=== PATIENT | female | born 1990 | race Caucasian/White ===

== ENCOUNTER 2022-08-25 02:40 | Day surgery (SDC) | payer MEDICAID, SELFPAY ==
[2022-08-25] VITALS (24 sets, daily range): BP systolic 84–116; BP diastolic 57–84; PULSE 91–110; RESP 16–22; TEMP 36.5–36.9; O2SAT 94–100
[2022-08-25] MEDS: 0.9 % SODIUM CHLORIDE 1000 ml 1,000 ML 6000 ML IV ×2 (02:40→03:00)
--- NOTE | 2022-08-25 02:51 | ED.GENADULT ---
HPI - General Adult General Chief complaint: Vaginal Bleeding Stated complaint: Vaginal bleeding,miscarriage Time Seen by Provider: 08/25/22 02:51 History of Present Illness HPI narrative: 31-year-old young woman who believes she started miscarrying about at about 14 weeks 1/2-2 weeks ago. Tonight got up to the bathroom, some clots and blood just poured out. EMS noted 70s systolic. EMS gave TXA. Arrives very anxious. Complaining of low abdominal pain. Denies bleeding problem. Has had miscarriages in the past. G5 P 3 with 1 miscarriage and this is likely another. no noted fever. She is worried though that she might have Trichomonas. Related Data Previous Rx's Medication Instructions Recorded dextroamphetamine-amphetamine 10 10 mg PO DAILY #10 tabs 08/25/22 mg tablet (Adderall) dextroamphetamine-amphetamine 30 30 mg PO DAILY #30 tabs 08/25/22 mg tablet (Adderall) drospirenone 3 mg-ethinyl 1 tab PO DAILY #84 tabs 08/25/22 estradiol 0.03 mg tablet (Ocella) ibuprofen 600 mg tablet 600 mg PO Q6H PRN Pain 14 days #30 08/25/22 tabs polysaccharide iron complex 150 mg 150 mg PO DAILY #90 caps 08/25/22 iron capsule (Ferrex) sertraline 50 mg tablet See Rx Instructions .Route 08/25/22 .COMPLEX 90 days #90 tabs Allergies Allergy/AdvReac Type Severity Reaction Status Date / Time No Known Drug Allergies Allergy Verified 08/25/22 04:22 Review of Systems Status of ROS: Reports: 6 or more systems reviewed and unremarkable except as noted in History and below [facility] Medical History ADD (attention deficit disorder) Anxiety and depression Methamphetamine use Poor historian Exam Narrative: Exam Narrative: Well nourished. Skin is some tattoos and darker complected. Cranial nerves 2-12 intact. Clearly anxious. Mildly tachypneic. Quite alert. Cranial nerves 2-12 intact. Cardiovascular is tachycardic. Oropharynx is little sticky. Lungs appear to be clear There is blood staining of feet, legs and other areas. Quick perineal exam does show active brisk bleeding. Abdomen is soft and quite tender in the suprapubic area. She prefers not even blankets to be resting on her low abdomen Moving all extremities out difficulty. Const: Vital Signs, click to edit/add: Vital Signs - 24 hr 08/25/22 04:01 08/25/22 04:18 08/25/22 02:53 Temperature 97.7 F 97.7 F Pulse Rate 105 H Pulse Rate [Left P ulse Oximeter] 110 H Pulse Rate [Right Pulse Oximeter] Respiratory Rate 20 22 Blood Pressure 100/68 Blood Pressure [Ri ght Arm] Blood Pressure [Ri ght Upper Arm] 89/65 L Pulse Oximetry 100 100 100 Oxygen Delivery Me thod Nasal Cannula Oxygen Flow Rate 2 08/25/22 02:47 08/25/22 02:50 08/25/22 02:56 Temperature 97.7 F 97.7 F Pulse Rate Pulse Rate [Left P ulse Oximeter] 110 H 108 H 104 H Pulse Rate [Right Pulse Oximeter] Respiratory Rate 22 22 22 Blood Pressure Blood Pressure [Ri ght Arm] Blood Pressure [Ri ght Upper Arm] 84/66 L 114/77 107/63 Pulse Oximetry 100 100 100 Oxygen Delivery Me thod Nasal Cannula Nasal Cannula Nasal Cannula Oxygen Flow Rate 2 2 2 08/25/22 03:00 08/25/22 03:10 08/25/22 03:20 Temperature 97.7 F Pulse Rate Pulse Rate [Left P ulse Oximeter] 94 94 97 Pulse Rate [Right Pulse Oximeter] Respiratory Rate 22 22 22 Blood Pressure Blood Pressure [Ri ght Arm] Blood Pressure [Ri ght Upper Arm] 91/64 112/67 104/64 Pulse Oximetry 100 100 100 Oxygen Delivery Me thod Nasal Cannula Nasal Cannula Nasal Cannula Oxygen Flow Rate 2 2 2 08/25/22 03:30 08/25/22 04:10 08/25/22 03:40 Temperature 97.9 F Pulse Rate 96 Pulse Rate [Left P ulse Oximeter] 98 96 Pulse Rate [Right Pulse Oximeter] Respiratory Rate 22 18 18 Blood Pressure 90/58 L Blood Pressure [Ri ght Arm] Blood Pressure [Ri ght Upper Arm] 103/68 110/63 Pulse Oximetry 100 100 100 Oxygen Delivery Me thod Nasal Cannula Nasal Cannula Oxygen Flow Rate 2 2 08/25/22 03:50 08/25/22 05:13 08/25/22 05:13 Temperature 98.2 F 98.2 F Pulse Rate Pulse Rate [Left P ulse Oximeter] 100 Pulse Rate [Right Pulse Oximeter] 99 99 Respiratory Rate 18 16 16 Blood Pressure Blood Pressure [Ri ght Arm] 96/57 L 96/57 L Blood Pressure [Ri ght Upper Arm] 97/84 Pulse Oximetry 100 99 99 Oxygen Delivery Me thod Nasal Cannula Room Air Room Air Oxygen Flow Rate 2 08/25/22 05:27 08/25/22 05:43 08/25/22 05:57 Temperature 97.8 F Pulse Rate Pulse Rate [Left P ulse Oximeter] Pulse Rate [Right Pulse Oximeter] 91 100 104 H Respiratory Rate 16 16 18 Blood Pressure Blood Pressure [Ri ght Arm] 92/65 93/61 100/67 Blood Pressure [Ri ght Upper Arm] Pulse Oximetry 98 100 100 Oxygen Delivery Me thod Room Air Room Air Room Air Oxygen Flow Rate 08/25/22 06:13 08/25/22 06:27 08/25/22 06:54 Temperature 98.3 F 98.4 F Pulse Rate Pulse Rate [Left P ulse Oximeter] Pulse Rate [Right Pulse Oximeter] 108 H 92 91 Respiratory Rate 18 16 18 Blood Pressure Blood Pressure [Ri ght Arm] 92/59 L 112/72 108/73 Blood Pressure [Ri ght Upper Arm] Pulse Oximetry 100 98 100 Oxygen Delivery Me thod Room Air Room Air Room Air Oxygen Flow Rate 08/25/22 07:25 08/25/22 07:41 08/25/22 07:56 Temperature 97.8 F Pulse Rate Pulse Rate [Left P ulse Oximeter] Pulse Rate [Right Pulse Oximeter] 100 100 103 H Respiratory Rate 18 20 18 Blood Pressure Blood Pressure [Ri ght Arm] 89/57 L 95/57 L 102/62 Blood Pressure [Ri ght Upper Arm] Pulse Oximetry 100 94 100 Oxygen Delivery Me thod Room Air Room Air Room Air Oxygen Flow Rate 08/25/22 07:56 08/25/22 07:10 Temperature 97.9 F Pulse Rate 103 H Pulse Rate [Left P ulse Oximeter] Pulse Rate [Right Pulse Oximeter] 97 Respiratory Rate 18 16 Blood Pressure 102/62 Blood Pressure [Ri ght Arm] 116/77 Blood Pressure [Ri ght Upper Arm] Pulse Oximetry 100 100 Oxygen Delivery Me thod Room Air Oxygen Flow Rate Documenting provider has reviewed patient's vital signs: yes Course Vital Signs Vital signs: Initial Vital Signs Temperature 97.7 F 08/25/22 02:47 Temperature Source Temporal Artery Scan 08/25/22 02:47 Pulse Rate 110 H 08/25/22 02:47 Respiratory Rate 22 08/25/22 02:47 Respiratory Effort Spontaneous 08/25/22 02:47 Respiratory Depth Normal 08/25/22 02:47 Respiratory Pattern 08/25/22 02:47 Blood Pressure 84/66 L 08/25/22 02:47 Blood Pressure Mean 72 08/25/22 02:47 Blood Pressure Position Supine 08/25/22 02:47 Pulse Oximetry 100 08/25/22 02:47 Oxygen Delivery Method 08/25/22 02:47 Oxygen Flow Rate 2 08/25/22 02:47 Vital Signs Temperature 97.7 F 08/25/22 02:47 Pulse Rate 110 H 08/25/22 02:47 Respiratory Rate 22 08/25/22 02:47 Blood Pressure 84/66 L 08/25/22 02:47 Pulse Oximetry 100 08/25/22 02:47 Oxygen Delivery Method 08/25/22 02:47 Oxygen Flow Rate 2 08/25/22 02:47 Temperature 97.9 F 08/25/22 07:56 Pulse Rate 103 H 08/25/22 07:56 Respiratory Rate 18 08/25/22 07:56 Blood Pressure 102/62 08/25/22 07:56 Pulse Oximetry 100 08/25/22 07:56 Oxygen Delivery Method 08/25/22 07:56 Oxygen Flow Rate 2 08/25/22 04:18 Medical Decision Making MDM Narrative Medical decision making narrative: After initiating IV fluids, I called to chainsaw mechanic on-call anticipating need for surgical intervention. Initial hemoglobin reported to me at 9.5. Unsure what baseline is. I would presume that this has not yet normalized anticipating this to be closer to 8 already. Continuing with blood preparation for likely transfusion. I would anticipate D&C shortly in the OR. For pain has been receiving dosings of fentanyl. Initially noting that she is fearful of fentanyl. I think though this would provide pain management with less dropping a blood pressures. Dr. Magana arrives to assist and head towards OR. pelvic US--- IMPRESSION: 1. No intrauterine IUP is identified. By the 2012 Society of Radiologists in Ultrasound consensus panel criteria, this is a of unknown location. Followup beta HCG and ultrasound is recommended to distinguish between a normal early IUP, complete , or ectopic . 2. If a spontaneous is clinically confirmed, followup is also recommended to exclude retained products of conception given the thickened, heterogeneous and hypervascular appearance to the endometrium. Lab Data Lab results reviewed: Yes I reviewed the patient's lab results Labs: Lab Results 08/25/22 08/25/22 08/25/22 Range/Units 02:40 02:40 02:40 WBC 13.61 H (4.50-11.00) K/uL RBC 3.17 L (4.00-5.20) m/uL Hgb 9.5 L (12.0-16.0) gm/dL Hct 28.8 L (33.0-51.0) % MCV 91 (80-100) fL MCH 30 (26-34) pg MCHC 33 (32-36) gm/dL RDW Coeff of Gisele 13.8 (11.5-15.5) % Plt Count 230 (140-440) K/uL Neut % (Auto) 79.1 H (42.0-72.0) % Lymph % (Auto) 13.1 L (20-44) % Barron % (Auto) 6.6 (0.0-11.0) % Eos % (Auto) 0.3 (0.0-7.0) % Baso % (Auto) 0.2 (0.0-3.0) % Neut # (Auto) 10.80 H (1.7-7.0) K/uL Lymph # (Auto) 1.80 (0.90-2.90) K/uL Barron # (Auto) 0.90 (0.00-0.90) K/UL Eos # (Auto) 0.00 (0.00-0.50) K/uL Baso # (Auto) 0.00 (0.00-0.30) K/uL Abs Immat Gran (auto) 0.10 (0.00-0.30) K/uL Imm/Tot Granulo (auto) 0.7 % INR 1.00 (0.91-1.10) APTT 29 (23-33) Seconds Fibrinogen (200-450) mg/dL Sodium 134 L (135-149) mmol/L Potassium 3.9 (3.6-5.1) mmol/L Chloride 108 (96-114) mmol/L Carbon Dioxide 22 (20-32) mmol/L BUN 13 (5-24) mg/dL Creatinine 0.6 (0.5-1.5) mg/dL Estimated GFR 125 ml/min Glucose 97 (60-115) mg/dL Calcium 7.7 L (8.4-10.6) mg/dL Total Bilirubin (0.1-1.5) mg/dL Direct Bilirubin (0.0-0.5) mg/dL AST (12-35) U/L ALT (4-35) U/L Alkaline Phosphatase (40-150) U/L Total Protein (6.0-8.3) g/dL Albumin (3.3-5.0) g/dL TSH (0.270-4.20) uIU/mL Vaginal Trichomonas (None Seen) Vaginal Yeast (None Seen) Vaginal Clue Cells (None Seen) Urine Opiates Screen (Negative) Ur Oxycodone Screen (Negative) Urine Methadone Screen (Negative) Ur Propoxyphene Screen (Negative) Ur Barbiturates Screen (Negative) U Tricyclic Antidepress (Negative) Ur Phencyclidine Scrn (Negative) Ur Amphetamines Screen (Negative) U Methamphetamines Scrn (Negative) U Benzodiazepines Scrn (Negative) Urine Cocaine Screen (Negative) U Marijuana (THC) Screen (Negative) Ur Drug Screen Comment C.trachomatis Ampl DNA (No Detected) N.gonorrhoeae Ampl DNA (No Detected) Blood Type Antibody Screen Crossmatch (AHG) 08/25/22 08/25/22 08/25/22 Range/Units 02:40 02:40 02:40 WBC (4.50-11.00) K/uL RBC (4.00-5.20) m/uL Hgb (12.0-16.0) gm/dL Hct (33.0-51.0) % MCV (80-100) fL MCH (26-34) pg MCHC (32-36) gm/dL RDW Coeff of Gisele (11.5-15.5) % Plt Count (140-440) K/uL Neut % (Auto) (42.0-72.0) % Lymph % (Auto) (20-44) % Barron % (Auto) (0.0-11.0) % Eos % (Auto) (0.0-7.0) % Baso % (Auto) (0.0-3.0) % Neut # (Auto) (1.7-7.0) K/uL Lymph # (Auto) (0.90-2.90) K/uL Barron # (Auto) (0.00-0.90) K/UL Eos # (Auto) (0.00-0.50) K/uL Baso # (Auto) (0.00-0.30) K/uL Abs Immat Gran (auto) (0.00-0.30) K/uL Imm/Tot Granulo (auto) % INR (0.91-1.10) APTT (23-33) Seconds Fibrinogen (200-450) mg/dL Sodium (135-149) mmol/L Potassium (3.6-5.1) mmol/L Chloride (96-114) mmol/L Carbon Dioxide (20-32) mmol/L BUN (5-24) mg/dL Creatinine (0.5-1.5) mg/dL Estimated GFR ml/min Glucose (60-115) mg/dL Calcium (8.4-10.6) mg/dL Total Bilirubin 0.2 (0.1-1.5) mg/dL Direct Bilirubin 0.1 (0.0-0.5) mg/dL AST 18 (12-35) U/L ALT 21 (4-35) U/L Alkaline Phosphatase 55 (40-150) U/L Total Protein 5.7 L (6.0-8.3) g/dL Albumin 3.0 L (3.3-5.0) g/dL TSH 4.130 (0.270-4.20) uIU/mL Vaginal Trichomonas (None Seen) Vaginal Yeast (None Seen) Vaginal Clue Cells (None Seen) Urine Opiates Screen (Negative) Ur Oxycodone Screen (Negative) Urine Methadone Screen (Negative) Ur Propoxyphene Screen (Negative) Ur Barbiturates Screen (Negative) U Tricyclic Antidepress (Negative) Ur Phencyclidine Scrn (Negative) Ur Amphetamines Screen (Negative) U Methamphetamines Scrn (Negative) U Benzodiazepines Scrn (Negative) Urine Cocaine Screen (Negative) U Marijuana (THC) Screen (Negative) Ur Drug Screen Comment C.trachomatis Ampl DNA (No Detected) N.gonorrhoeae Ampl DNA (No Detected) Blood Type A Positive Antibody Screen NEGATIVE Crossmatch (AHG) See Detail 08/25/22 08/25/22 08/25/22 Range/Units 05:10 05:10 07:58 WBC (4.50-11.00) K/uL RBC (4.00-5.20) m/uL Hgb (12.0-16.0) gm/dL Hct (33.0-51.0) % MCV (80-100) fL MCH (26-34) pg MCHC (32-36) gm/dL RDW Coeff of Gisele (11.5-15.5) % Plt Count (140-440) K/uL Neut % (Auto) (42.0-72.0) % Lymph % (Auto) (20-44) % Barron % (Auto) (0.0-11.0) % Eos % (Auto) (0.0-7.0) % Baso % (Auto) (0.0-3.0) % Neut # (Auto) (1.7-7.0) K/uL Lymph # (Auto) (0.90-2.90) K/uL Barron # (Auto) (0.00-0.90) K/UL Eos # (Auto) (0.00-0.50) K/uL Baso # (Auto) (0.00-0.30) K/uL Abs Immat Gran (auto) (0.00-0.30) K/uL Imm/Tot Granulo (auto) % INR 1.01 (0.91-1.10) APTT 29 (23-33) Seconds Fibrinogen 389 (200-450) mg/dL Sodium (135-149) mmol/L Potassium (3.6-5.1) mmol/L Chloride (96-114) mmol/L Carbon Dioxide (20-32) mmol/L BUN (5-24) mg/dL Creatinine (0.5-1.5) mg/dL Estimated GFR ml/min Glucose (60-115) mg/dL Calcium (8.4-10.6) mg/dL Total Bilirubin (0.1-1.5) mg/dL Direct Bilirubin (0.0-0.5) mg/dL AST (12-35) U/L ALT (4-35) U/L Alkaline Phosphatase (40-150) U/L Total Protein (6.0-8.3) g/dL Albumin (3.3-5.0) g/dL TSH (0.270-4.20) uIU/mL Vaginal Trichomonas (None Seen) Vaginal Yeast (None Seen) Vaginal Clue Cells (None Seen) Urine Opiates Screen Negative (Negative) Ur Oxycodone Screen Negative (Negative) Urine Methadone Screen Negative (Negative) Ur Propoxyphene Screen Negative (Negative) Ur Barbiturates Screen Negative (Negative) U Tricyclic Antidepress Negative (Negative) Ur Phencyclidine Scrn Negative (Negative) Ur Amphetamines Screen POSITIVE A* (Negative) U Methamphetamines Scrn POSITIVE A* (Negative) U Benzodiazepines Scrn Negative (Negative) Urine Cocaine Screen Negative (Negative) U Marijuana (THC) Screen Negative (Negative) Ur Drug Screen Comment See Note C.trachomatis Ampl DNA NOT DETECTED (No Detected) N.gonorrhoeae Ampl DNA NOT DETECTED (No Detected) Blood Type Antibody Screen Crossmatch (AHG) 08/25/22 08/25/22 Range/Units 07:58 08:58 WBC 17.08 H (4.50-11.00) K/uL RBC 2.92 L (4.00-5.20) m/uL Hgb 8.7 L (12.0-16.0) gm/dL Hct 26.3 L (33.0-51.0) % MCV 90 (80-100) fL MCH 30 (26-34) pg MCHC 33 (32-36) gm/dL RDW Coeff of Gisele 14.1 (11.5-15.5) % Plt Count 208 (140-440) K/uL Neut % (Auto) 83.7 H (42.0-72.0) % Lymph % (Auto) 10.1 L (20-44) % Barron % (Auto) 5.4 (0.0-11.0) % Eos % (Auto) 0.2 (0.0-7.0) % Baso % (Auto) 0.1 (0.0-3.0) % Neut # (Auto) 14.30 H (1.7-7.0) K/uL Lymph # (Auto) 1.70 (0.90-2.90) K/uL Barron # (Auto) 0.90 (0.00-0.90) K/UL Eos # (Auto) 0.00 (0.00-0.50) K/uL Baso # (Auto) 0.00 (0.00-0.30) K/uL Abs Immat Gran (auto) 0.10 (0.00-0.30) K/uL Imm/Tot Granulo (auto) 0.5 % INR (0.91-1.10) APTT (23-33) Seconds Fibrinogen (200-450) mg/dL Sodium (135-149) mmol/L Potassium (3.6-5.1) mmol/L Chloride (96-114) mmol/L Carbon Dioxide (20-32) mmol/L BUN (5-24) mg/dL Creatinine (0.5-1.5) mg/dL Estimated GFR ml/min Glucose (60-115) mg/dL Calcium (8.4-10.6) mg/dL Total Bilirubin (0.1-1.5) mg/dL Direct Bilirubin (0.0-0.5) mg/dL AST (12-35) U/L ALT (4-35) U/L Alkaline Phosphatase (40-150) U/L Total Protein (6.0-8.3) g/dL Albumin (3.3-5.0) g/dL TSH (0.270-4.20) uIU/mL Vaginal Trichomonas No Trichomonas Seen (None Seen) Vaginal Yeast No Yeast Seen (None Seen) Vaginal Clue Cells No Clue Cells Seen (None Seen) Urine Opiates Screen (Negative) Ur Oxycodone Screen (Negative) Urine Methadone Screen (Negative) Ur Propoxyphene Screen (Negative) Ur Barbiturates Screen (Negative) U Tricyclic Antidepress (Negative) Ur Phencyclidine Scrn (Negative) Ur Amphetamines Screen (Negative) U Methamphetamines Scrn (Negative) U Benzodiazepines Scrn (Negative) Urine Cocaine Screen (Negative) U Marijuana (THC) Screen (Negative) Ur Drug Screen Comment C.trachomatis Ampl DNA (No Detected) N.gonorrhoeae Ampl DNA (No Detected) Blood Type Antibody Screen Crossmatch (AHG) Critical Care Time Critical Care Time Total Critical Care Time in Minutes: 40 Discharge Plan Discharge Clinical Impression: Incomplete miscarriage, Uterine hemorrhage Activity Level: No Restrictions Discharge Diet: Regular
[2022-08-25] MEDS: ONDANSETRON 2 MG/ML inj 4 MG IVP (02:57)
[2022-08-25] MEDS: fentaNYL 100 MCG/2 ML inj 25 MCG IVP ×3 (02:57→03:26)
--- NOTE | 2022-08-25 02:57 | CRLHL7_ITS ---
For Patients: As a result of the Century Cures Act, medical imaging exams and procedure reports are released immediately into your electronic medical record. You may view this report before your referring provider. If you have questions, please contact your health care provider. INDICATION: Vaginal bleeding TECHNIQUE: Ultrasound limited OB pelvis transvaginal. Real time gracia scale imaging of the pelvis was performed. A total of 8 images were submitted. COMPARISON: None FINDINGS: Gestational Sac: No intrauterine gestational sac or pole is identified. Uterus: The visualized myometrium appears normal. The endometrium is thickened and heterogeneous in appearance, measuring 38 mm. Blood flow seen on color Doppler images within the endometrial complex. Pelvis: The ovaries and adnexa were not imaged. No significant ascites noted. IMPRESSION: 1. No intrauterine IUP is identified. By the 2012 Society of Radiologists in Ultrasound consensus panel criteria, this is a of unknown location. Followup beta HCG and ultrasound is recommended to distinguish between a normal early IUP, complete , or ectopic . 2. If a spontaneous is clinically confirmed, followup is also recommended to exclude retained products of conception given the thickened, heterogeneous and hypervascular appearance to the endometrium. Dictated by Bc Perez MD @ 08/25/2022 3:52:27 AM Dictated by: Bc Perez MD @ 08/25/2022 03:52:34 (Electronically Signed)
[2022-08-25 03:04] LABS: Basophils Percent Auto 0.2 % (0.0-3.0); Eosinophils Percent Auto 0.3 % (0.0-7.0); Hematocrit 28.8 % (33.0-51.0); Hemoglobin* 9.5 gm/dL (12.0-16.0); Immature Granulocytes Pct Auto 0.7 %; Lymphocytes Percent Auto 13.1 % (20-44); Mean Corpuscular HGB Conc 33 gm/dL (32-36); Mean Corpuscular Hemoglobin 30 pg (26-34); Mean Corpuscular Volume 91 fL (80-100); Monocytes Percent Auto 6.6 % (0.0-11.0); Neutrophils Percent Auto 79.1 % (42.0-72.0); Platelet Count* 230 K/uL (140-440); RDW Coefficient of Variation % 13.8 % (11.5-15.5); Red Blood Count 3.17 m/uL (4.00-5.20); Slide Review Reflex No; White Blood Count* 13.61 K/uL (4.50-11.00)
[2022-08-25 03:06] LABS: Chloride* 108 mmol/L (96-114); Sodium* 134 mmol/L (135-149)
[2022-08-25 03:07] LABS: Potassium* 3.9 mmol/L (3.6-5.1)
[2022-08-25 03:09] LABS: Alanine Aminotransferase* 21 U/L (4-35); Alkaline Phosphatase* 55 U/L (40-150); Aspartate Amino Transferase* 18 U/L (12-35); Bilirubin Direct* 0.1 mg/dL (0.0-0.5); Bilirubin Total* 0.2 mg/dL (0.1-1.5); Creatinine* 0.6 mg/dL (0.5-1.5); Estimated Glomerular Filt Rate 125 ml/min; Prothrombin Time 13.8 Seconds; Total Protein* 5.7 g/dL (6.0-8.3)
[2022-08-25 03:10] LABS: Blood Urea Nitrogen* 13 mg/dL (5-24); Calcium* 7.7 mg/dL (8.4-10.6); Carbon Dioxide* 22 mmol/L (20-32); Glucose* 97 mg/dL (60-115); Partial Thromboplastin Time* 29 Seconds (23-33)
[2022-08-25] MEDS: 0.9 % SODIUM CHLORIDE 1000 ml 1,000 ML IV (03:15)
--- NOTE | 2022-08-25 03:40 | P.GYNHP_ITS ---
INDEPENDENT AGENT MUSIC EDUCATION: H&P: HPI Surgical History of Present Illness Time Seen by Provider: 03:15 Date Seen: 08/25/22 Reason for admission: vaginal bleeding Last H&P: No Data to Display Narrative: Johnna Griffin is a 31 year old female who believes she's approximately 14 weeks and is having a miscarriage. She's started having vaginal bleeding and passing large amount of clots a few hours ago. Patient is uncomfortable with cramping and active vaginal bleeding when I examined her. She's a poor historian and unable to tell me if she's had any care. She is anxious and continously asking for pain medication despite receiving multiple fetanyl pushes. Bedside, transabdominal ultrasound showed possible retained products placenta and blood clots. No gestational sac or pole identified. She is hypotensive and received TXA via EMS. Vaginal packing was placed with Kerlex and she was consented for emergency D&C. Denies any HTN, asthma, or another medical issues. No known surgery. She's concern for STIs. Review of Systems Status of ROS: Reports: 10 or more systems reviewed and unremarkable except as noted in History and below INDEPENDENT [employer]ENT [employer] EDUCATION - Exam Physical Exam: Narrative: Physical exam: General: Patient writhing in bed ask for pain medication. Psych: Alert and oriented x3 but difficult to direct HEENT: Normocephalic, atraumatic Abdomen: soft, mild tenderness and guarding. No rebound. No masses Lower extremities: No edema or erythema Pelvic exam: Copious amount of blood clot evacuated with insertion of speculum. Cervix visually open. Vaginal packing placed. Unable to do thorough exam in ED due to patient's intolerance. INDEPENDENT [employer]ENT MUSIC EDUCATION - Results Labs Labs: Short CBC 08/25/22 Range/Units 02:40 WBC 13.61 H (4.50-11.00) K/uL Hgb 9.5 L (12.0-16.0) gm/dL Hct 28.8 L (33.0-51.0) % Plt Count 230 (140-440) K/uL BMP 08/25/22 02:40 Sodium 134 L Potassium 3.9 Chloride 108 Carbon Dioxide 22 BUN 13 Creatinine 0.6 Glucose 97 Calcium 7.7 L Liver Function 08/25/22 Range/Units 02:40 Total Bilirubin 0.2 (0.1-1.5) mg/dL Direct Bilirubin 0.1 (0.0-0.5) mg/dL AST 18 (12-35) U/L ALT 21 (4-35) U/L Alkaline Phosphatase 55 (40-150) U/L Albumin 3.0 L (3.3-5.0) g/dL Assessment and Plan Assessment and plan (1) Incomplete miscarriage with blood clot: Status: Acute (2) Retained products of conception: Status: Acute Plan - Type and cross for 2 u of pRBC. Will give when available - Will proceed with emergency D&C
[2022-08-25] MEDS: 0.9 % SODIUM CHLORIDE 250 ml IV (04:00)
--- NOTE | 2022-08-25 04:14 | ED.NURSE ---
pt transferred to OR by OR crew, blood transfusion and NS infusing/transferred to OR crew.
[2022-08-25] MEDS: miSOPROStoL 800 MCG/4 TABLET PR (04:49)
--- NOTE | 2022-08-25 05:18 | P.PCNOB_ITS ---
Procedure Pre-op/Post-op diagnoses: Pre-Op/Post-Op Diagnoses Operation Date: 08/25/22 03:45 <No data on this case meets the specified criteria> Procedure: Procedures Operation Date: 08/25/22 03:45 Actual Procedure Side Surgeon p Jerson D&C Ginette Magana MD Preoperative diagnosis: Johnna is a 31-year-old 5 para 3013 with an incomplete and postabortive hemorrhage secondary to retained placenta. Patient states she's approximately 14 weeks. However, uterine fundus feels approxmitely 17-18 weeks. Records obtained from [place] after surgery showed her to be 16w3d. Postoperative diagnosis: Same Procedure: Suction curettage Anesthesia: Conscious sedation Unable to do paracervical block due cervical dilation and placental mass at cervical os Surgeon: Ginette Magana MD Blood Bank Business Manager: Not applicable Antibiotics: 200 mg of Doxycycline Uterotonics used: 20 u of pitocin, 0.2 mg of methergine, and 800 mcg of misoprostol rectally placed Estimated blood loss: Intraoperatively 350 mL. I would estimate approximately a least 1L bloos loss in ED. Unclear how much blood she lost prior to arrival. Specimen: Retained products of conception to pathology Findings: On exam under anesthesia: Patient is soaking through vaginal packing. The vaginal packing was removed vaginal prep. Exam after vaginal prep, the uterus was approximately 17-18 weeks size, anterior position. Cervical os was di lated to approximtely 4 cm with active bleeding and placental tissue coming through the os. Adnexa were without mass or fullness palpable. Bedside transabdominal ultrasound showed large amount of retained products in the uterus as well. On suction curettage there was a large amount of products of conception. Procedure: Consent was obtained from the patient. Risks with a suction curettage include injury to cervix or uterus 1/400-1500. Infection in the uterus resulting in endometritis 1/400-1500. She will receive antibiotics in the IV (200 mg of Doxycycline) in the operating room prior to the procedure to prevent infection. Chance of Asherman syndrome resulting in inability to conceive a in the future: 10/2499. Chance of anesthesia complications are extremely rare: Less than 1/100,000 especially with negative personal or family history of anesthesia issues. I explained to her that this would be a life-saving procedure due to her active hemorrhage. Johnna was taken to the operating room where conscious sedation was found to be adequate. She was placed in the dorsal lithotomy position and an exam under anesthesia was performed with with findings stated above. She was then prepped and draped in normal sterile manner. Bladder was emptied with straight cath. Urine sent for tox and STI screen. A bivalve speculum was placed in the vagina to visualize the cervix. Ring forceps was used to removed the bulk of the placenta presenting at the cervical os. After removal, the anterior lip of the cervix was grasped with a ring forceps. The cervix was already dilated to a pproximately 4 cm, no mechanical dilation required. Under transabdominal ultrasound guidance, a #10 curved curette was then advanced into the uterus without difficulty. A suction curettage was then performed using 60 mmHg pressure. Five passes with the curette were performed to remove all visualized tissue. The curette was removed and mild, sharp curettage was performed to verify that all of the products of conception had been removed. This was confirmed via ultrasound. One last pass with the curved curette was then made to verify that all of the tissue had been removed. The ring forceps clamp was removed from the anterior lip of the cervix. I did uterine message for 5 minutes. Excellent hemostasis was noted. The speculum was then removed from the vagina. The patient tolerated this procedure well. Sponge, lap and instrument counts were correct x2 the end of the procedure. The patient was awakened from sedation and taken to the recovery area in stable condition. Estimated blood loss (mL): 350
--- NOTE | 2022-08-25 05:30 | W.ANESCHARGE ---
Anesthesia Charges Start Date/Time Anesthesia Start Date: 08/25/22 Anesthesia Start Time: 04:14 Stop Date/Time Anesthesia Stop Date: 08/25/22 Anesthesia Stop Time: 05:09 Summary Emergency: Yes
[2022-08-25 05:34] LABS: Barbiturate Screen Urine Negative (Negative); Benzodiazepines Screen Urine Negative (Negative); Cannabinoid Screen Urine Negative (Negative); Cocaine Screen Urine Negative (Negative); Methadone Screen Urine Negative (Negative); Opiate Screen Urine Negative (Negative); Oxycodone Screen Urine Negative (Negative); Phencyclidine Screen Urine Negative (Negative); Tricyclic Antidepressant Urine Negative (Negative)
[2022-08-25 05:37] LABS: Amphetamine Screen Urine POSITIVE (Negative); Methamphetamines Screen Urine POSITIVE (Negative)
[2022-08-25] MEDS: IBUPROFEN 600 MG TABLET PO (05:48)
[2022-08-25 06:57] LABS: Chlamydia DNA Amplified* NOT DETECTED (No Detected); GC DNA Amplified* NOT DETECTED (No Detected)
[2022-08-25 08:14] LABS: Basophils Percent Auto 0.1 % (0.0-3.0); Eosinophils Percent Auto 0.2 % (0.0-7.0); Hematocrit 26.3 % (33.0-51.0); Hemoglobin* 8.7 gm/dL (12.0-16.0); Immature Granulocytes Pct Auto 0.5 %; Lymphocytes Percent Auto 10.1 % (20-44); Mean Corpuscular HGB Conc 33 gm/dL (32-36); Mean Corpuscular Hemoglobin 30 pg (26-34); Mean Corpuscular Volume 90 fL (80-100); Monocytes Percent Auto 5.4 % (0.0-11.0); Neutrophils Percent Auto 83.7 % (42.0-72.0); Platelet Count* 208 K/uL (140-440); RDW Coefficient of Variation % 14.1 % (11.5-15.5); Red Blood Count 2.92 m/uL (4.00-5.20); White Blood Count* 17.08 K/uL (4.50-11.00)
[2022-08-25 08:22] LABS: Slide Review Reflex No
[2022-08-25 08:40] LABS: INR 1.01 (0.91-1.10); Partial Thromboplastin Time* 29 Seconds (23-33); Prothrombin Time 13.9 Seconds
[2022-08-25 08:41] LABS: Fibrinogen* 389 mg/dL (200-450)
--- NOTE | 2022-08-25 08:52 | PC.NURSE ---
Pt.'s mother called to check on the pt. and was asking how she was doing. Pt in with the provider at this time and verbalized permission infront of Dr. Mosquera and Audrey Armendariz RN, that her mother can be updated that she is stable and pt will call her later. She verbalized her mother knew she was here and received a blood transfusion. The mother wanted to know why she had the transfusion she asked about an injury. Her mother was told to call the pt for more information.
[2022-08-25] MEDS: SERTRALINE 50 MG TABLET 25 MG PO (09:05)
--- NOTE | 2022-08-25 09:10 | P.DS_ITS ---
DS: Providers Provider Date Seen: 08/25/22 Primary care physician: Not a Local Provider Attending Physician on discharge: Ginette Magana MD DS: Diagnosis Discharge Diagnosis (1) Methamphetamine use: Status: Acute Problem details: 1. Planning inpatient rehab at [facility] (2) ADD (attention deficit disorder): Status: Acute Problem details: 1. Prescription for adderall given on discharge: 30mg QAm, 10mg Qpm (3) Anemia due to acute blood loss: Status: Acute Problem details: 1. S/p transfusion of 1 u pRBC's 2. Discharged with an iron supplement daily (4) Transfusion of blood during current hospitalisation: Status: Acute (5) Anxiety and depression: Status: Acute Problem details: 1. Discharged with sertraline 50 mg: take 1/2 tab PO daily for 14 days then increase to 1 tablet daily (6) Retained products of conception: Status: Acute Problem details: 1. S/p suction D&C 2. Given a prescription for Ocella ocp's to start in 2 weeks. 3. The patient states she wants her tubes tied: will discuss w/ Dr. Magana at her 2 week postop visit. Will need Federal Consent signed. (7) Incomplete miscarriage with blood clot: Status: Acute Problem details: 1. S/P D&C SERGEANT OF CORRECTIONS-Discharge Summary Hospital Course Hospital Course Narrative: See hospital course in the ancillary services manager exam portion of this note below. Time Spent with Patient Time attestation: Total time spent providing and/or coordinating discharge services: 45 minutes. SERGEANT OF CORRECTIONS - Exam Physical Exam: Vital signs: Temp Pulse Resp BP Pulse Ox O2 Del Method O2 Flow Rate 97.8 F 103 H 18 102/62 100 2 08/25/22 07:25 08/25/22 07:56 08/25/22 07:56 08/25/22 07:56 08/25/22 07:56 08/25/22 07:56 08/25/22 04:18 Narrative: Hospital Course: Johnna was admitted to the hospital on 08/25/2022 for an emergent suction D&C after incomplete miscarriage in the 2nd trimester with active bleeding. Her surgery was uncomplicated. Her postoperative course was complicated by blood transfusion of 1 unit of packed red blood cells. By postoperative day 0, she was tolerating a regular diet, ambulating without difficulty, passing flatus and pain was well controlled with oral pain medications. She would like to be discharged home today. This patient is a poor historian. She was recently incarcerated and told she was on 07/30/2022 by a nurse that she saw while she was incarcerated. She measured 13 weeks gestation at that time. She states she began having bleeding approximately 08/11/2022 and passed the fetus in the toilet at home and then she flushed the fetus. She did not go to a clinic for follow up. She began bleeding heavily in the agent based modeler hours on 08/25/2022, she became dizzy so she called 911 and was seen in the emergency department. Please see Dr. Magana's note for complete details of her surgery. She received 1u PRBC's. Her urine toxicology screen came back positive for amphetamines and methamphetamines. This was sent for confirmatory testing. Because this was a 2nd trimester loss, orders for uterine demise were drawn. When she arrived in the emergency department she was unable to give any history. When I saw her this morning at 9:00 a.m. she states that she found out she was on 07/30/2022. She states she was having ?light normal cycles? so did not think she was . She also denies having symptoms. She states that she stopped using meth when she found out she was . She then miscarried the fetus in her toilet at home on approximately 08/11/2022 and thought that her miscarriage was complete in did not follow-up with a physician. She denied using meth between 08/11/2022 and today. She also takes Adderall for ADD: 30 mg q.a.m., 10 mg q.p.m. which explains the amphetamine positive results on urine toxicology. She requested a wet prep for Trichomonas because she had some ?funny discharge? 2 days ago. A wet prep was obtained. She also states that she would like to have her tubes tied and I told her to discuss this with Dr. Magana at her 2 week postop visit, she will need to sign a Federal consent form. Meantime she requested a prescription for oral contraceptive which was sent to her pharmacy on discharge: Ocella. She requested a control pill that would help acne. She has had 3 children: See obstetric history below. All of her children are in foster care and she has not had visitation with them. She has a CPS worker: Miguel Patino. Obstetric history: 1. Miscarriage at age 20 2. 10/03/2018: , female, Isatu. 3. 01/03/2020, , male, Chris. 4. 03/06/21. . Female, Carrol 5. 08/11/22: miscarriage, Suction D&C 08/25/22 for retained POC. Labs: Preoperative hemoglobin 9.2, postoperative and post 1u pRBC's hemoglobin 8.7. Asymptomatic. Objective: General: Alert and oriented x3. Pleasant, woman in no acute distress. Vital signs: See EMR. Heart: Regular rate and rhythm without gallop, rub or murmur. Chest: Clear to auscultation bilaterally. Abdomen: Soft, nontender, nondistended with normal bowel sounds throughout. No CVA or flank tenderness. Pelvic: Minimal vaginal bleeding, remainder of pelvic exam deferred. Extremities: No pain, edema, cyanosis or clubbing. Psychiatric: Pressured speech and flight of ideas. Normal affect. Alert and oriented x3 Assessment: 31-year-old postoperative day 0 from a Suction D&C for incomplete miscarriage and hemorrhage, stable. Plan: 1. Discharge home today. 2. Activity restrictions reviewed with the patient. 3. Return to clinic to see Dr. Magana for a postoperative visit in 2-3 weeks. 4. size worker notified and will be seeing the patient. 5. See discharge prescriptions. 6. Nurse collected wet prep. 7. Asymptomatic anemia due to acute blood loss: Iron supplement ordered SERGEANT OF CORRECTIONS - DS: Data Data Completed and Pending Labs on day of discharge: Labs from last 24 hours 08/25/22 08/25/22 08/25/22 07:58 07:58 05:10 WBC 17.08 H RBC 2.92 L Hgb 8.7 L Hct 26.3 L MCV 90 MCH 30 MCHC 33 RDW Coeff of Gisele 14.1 Plt Count 208 Neut % (Auto) 83.7 H Lymph % (Auto) 10.1 L [place] % (Auto) 5.4 Eos % (Auto) 0.2 Baso % (Auto) 0.1 Neut # (Auto) 14.30 H Lymph # (Auto) 1.70 [place] # (Auto) 0.90 Eos # (Auto) 0.00 Baso # (Auto) 0.00 Abs Immat Gran (auto) 0.10 Imm/Tot Granulo (auto) 0.5 PT (Anticoag Therapy) INR 1.01 APTT 29 PTT Heparin Neutraliz Thrombin w/out Calcium Reptilase Time Fibrinogen 389 Plt Neutral PTT w Plts PTT-D 1:1 Mix LA PTT Screen dRVVT Scr Ratio (Bleed) dRVVT Confirm Interp LA dRVVT Mix Ratio Hexagon Phase Phos Conf Lupus Anticoag Interp Factor V Spec Type Factor V Leiden Mutat Sodium Potassium Chloride Carbon Dioxide BUN Creatinine Estimated GFR Glucose Calcium Total Bilirubin Direct Bilirubin AST ALT Alkaline Phosphatase Total Protein Albumin TSH Urine Opiates Screen Ur Oxycodone Screen Urine Methadone Screen Ur Propoxyphene Screen Ur Barbiturates Screen U Tricyclic Antidepress Ur Phencyclidine Scrn Ur Amphetamines Screen U Methamphetamines Scrn U Benzodiazepines Scrn Urine Cocaine Screen U Marijuana (THC) Screen Ur Drug Screen Comment b-2 Glycopr IgG FEIA c/o 6.9 b-2 Glycopr IgM FEIA c/o 6.9 Anti-Cardiolipin IgG Ab Anti-Cardiolipin IgA Ab Anti-Cardiolipin IgM Ab C.trachomatis Ampl DNA NOT DETECTED CMV IgG Ab CMV IgM Ab N.gonorrhoeae Ampl DNA NOT DETECTED Parvovirus B19 IgG Ab Parvovirus B19 IgM Ab Toxopl gondii IgG & IgM Blood Type Antibody Screen Crossmatch (AHG) 08/25/22 08/25/22 08/25/22 05:10 02:40 02:40 WBC RBC Hgb Hct MCV MCH MCHC RDW Coeff of Gisele Plt Count Neut % (Auto) Lymph % (Auto) [place] % (Auto) Eos % (Auto) Baso % (Auto) Neut # (Auto) Lymph # (Auto) [place] # (Auto) Eos # (Auto) Baso # (Auto) Abs Immat Gran (auto) Imm/Tot Granulo (auto) PT (Anticoag Therapy) Pending INR APTT PTT Heparin Neutraliz Pending Thrombin w/out Calcium Pending Reptilase Time Pending Fibrinogen Plt Neutral PTT w Plts Pending PTT-D 1:1 Mix Pending LA PTT Screen Pending dRVVT Scr Ratio (Bleed) Pending dRVVT Confirm Interp Pending LA dRVVT Mix Ratio Pending Hexagon Phase Phos Conf Pending Lupus Anticoag Interp Pending Factor V Spec Type Pending Factor V Leiden Mutat Pending Sodium Potassium Chloride Carbon Dioxide BUN Creatinine Estimated GFR Glucose Calcium Total Bilirubin Direct Bilirubin AST ALT Alkaline Phosphatase Total Protein Albumin TSH Urine Opiates Screen Negative Ur Oxycodone Screen Negative Urine Methadone Screen Negative Ur Propoxyphene Screen Negative Ur Barbiturates Screen Negative U Tricyclic Antidepress Negative Ur Phencyclidine Scrn Negative Ur Amphetamines Screen POSITIVE A* U Methamphetamines Scrn POSITIVE A* U Benzodiazepines Scrn Negative Urine Cocaine Screen Negative U Marijuana (THC) Screen Negative Ur Drug Screen Comment See Note b-2 Glycopr IgG FEIA c/o 6.9 Pending b-2 Glycopr IgM FEIA c/o 6.9 Pending Anti-Cardiolipin IgG Ab Pending Anti-Cardiolipin IgA Ab Pending Anti-Cardiolipin IgM Ab Pending C.trachomatis Ampl DNA CMV IgG Ab Pending CMV IgM Ab Pending N.gonorrhoeae Ampl DNA Parvovirus B19 IgG Ab Pending Parvovirus B19 IgM Ab Pending Toxopl gondii IgG & IgM Pending Pending Blood Type Antibody Screen Crossmatch (AHG) 08/25/22 08/25/22 08/25/22 02:40 02:40 02:40 WBC RBC Hgb Hct MCV MCH MCHC RDW Coeff of Gisele Plt Count Neut % (Auto) Lymph % (Auto) [place] % (Auto) Eos % (Auto) Baso % (Auto) Neut # (Auto) Lymph # (Auto) [place] # (Auto) Eos # (Auto) Baso # (Auto) Abs Immat Gran (auto) Imm/Tot Granulo (auto) PT (Anticoag Therapy) INR APTT PTT Heparin Neutraliz Thrombin w/out Calcium Reptilase Time Fibrinogen Plt Neutral PTT w Plts PTT-D 1:1 Mix LA PTT Screen dRVVT Scr Ratio (Bleed) dRVVT Confirm Interp LA dRVVT Mix Ratio Hexagon Phase Phos Conf Lupus Anticoag Interp Factor V Spec Type Factor V Leiden Mutat Sodium Potassium Chloride Carbon Dioxide BUN Creatinine Estimated GFR Glucose Calcium Total Bilirubin 0.2 Direct Bilirubin 0.1 AST 18 ALT 21 Alkaline Phosphatase 55 Total Protein 5.7 L Albumin 3.0 L TSH 4.130 Urine Opiates Screen Ur Oxycodone Screen Urine Methadone Screen Ur Propoxyphene Screen Ur Barbiturates Screen U Tricyclic Antidepress Ur Phencyclidine Scrn Ur Amphetamines Screen U Methamphetamines Scrn U Benzodiazepines Scrn Urine Cocaine Screen U Marijuana (THC) Screen Ur Drug Screen Comment b-2 Glycopr IgG FEIA c/o 6.9 b-2 Glycopr IgM FEIA c/o 6.9 Anti-Cardiolipin IgG Ab Anti-Cardiolipin IgA Ab Anti-Cardiolipin IgM Ab C.trachomatis Ampl DNA CMV IgG Ab CMV IgM Ab N.gonorrhoeae Ampl DNA Parvovirus B19 IgG Ab Parvovirus B19 IgM Ab Toxopl gondii IgG & IgM Blood Type A Positive Antibody Screen NEGATIVE Crossmatch (AHG) See Detail 08/25/22 08/25/22 08/25/22 02:40 02:40 02:40 WBC 13.61 H RBC 3.17 L Hgb 9.5 L Hct 28.8 L MCV 91 MCH 30 MCHC 33 RDW Coeff of Gisele 13.8 Plt Count 230 Neut % (Auto) 79.1 H Lymph % (Auto) 13.1 L [place] % (Auto) 6.6 Eos % (Auto) 0.3 Baso % (Auto) 0.2 Neut # (Auto) 10.80 H Lymph # (Auto) 1.80 [place] # (Auto) 0.90 Eos # (Auto) 0.00 Baso # (Auto) 0.00 Abs Immat Gran (auto) 0.10 Imm/Tot Granulo (auto) 0.7 PT (Anticoag Therapy) INR 1.00 APTT 29 PTT Heparin Neutraliz Thrombin w/out Calcium Reptilase Time Fibrinogen Plt Neutral PTT w Plts PTT-D 1:1 Mix LA PTT Screen dRVVT Scr Ratio (Bleed) dRVVT Confirm Interp LA dRVVT Mix Ratio Hexagon Phase Phos Conf Lupus Anticoag Interp Factor V Spec Type Factor V Leiden Mutat Sodium 134 L Potassium 3.9 Chloride 108 Carbon Dioxide 22 BUN 13 Creatinine 0.6 Estimated GFR 125 Glucose 97 Calcium 7.7 L Total Bilirubin Direct Bilirubin AST ALT Alkaline Phosphatase Total Protein Albumin TSH Urine Opiates Screen Ur Oxycodone Screen Urine Methadone Screen Ur Propoxyphene Screen Ur Barbiturates Screen U Tricyclic Antidepress Ur Phencyclidine Scrn Ur Amphetamines Screen U Methamphetamines Scrn U Benzodiazepines Scrn Urine Cocaine Screen U Marijuana (THC) Screen Ur Drug Screen Comment b-2 Glycopr IgG FEIA c/o 6.9 b-2 Glycopr IgM FEIA c/o 6.9 Anti-Cardiolipin IgG Ab Anti-Cardiolipin IgA Ab Anti-Cardiolipin IgM Ab C.trachomatis Ampl DNA CMV IgG Ab CMV IgM Ab N.gonorrhoeae Ampl DNA Parvovirus B19 IgG Ab Parvovirus B19 IgM Ab Toxopl gondii IgG & IgM Blood Type Antibody Screen Crossmatch (AHG) Procedures Procedures: Procedures Operation Date: 08/25/22 03:45 Actual Procedure Side Surgeon p Suction D&C Ginette Magana MD Discharge Plan Discharge Disposition: Home, Self-Care Discharging Surgeon: Whitney Mosquera Follow-Up Appointment: In 2-[address] Magana Prescriptions: New ibuprofen 600 mg Tablet 600 mg PO Q6H PRN (Reason: Pain) 14 Days Qty: 30 0RF sertraline 50 mg Tablet See Rx Instructions .ROUTE .COMPLEX 90 Days Qty: 90 0RF Rx Instructions: Take 1/2 tablet by mouth daily. Increase to 1 tablet daily after 2 weeks. dextroamphetamine-amphetamine [Adderall] 30 mg tablet 30 mg PO DAILY Qty: 30 0RF Rx Instructions: Take 1 tab by mouth Qam. Take a 10mg tab PO Qpm for total dose of 40 mg daily. dextroamphetamine-amphetamine [Adderall] 10 mg tablet 10 mg PO DAILY Qty: 10 0RF polysaccharide iron complex [Ferrex 150] 150 mg iron capsule 150 mg PO DAILY Qty: 90 0RF drospirenone-ethinyl estradiol [Ocella] 3-0.03 mg tablet 1 tab PO DAILY Qty: 84 4RF Rx Instructions: Take 1 tablet by mouth at the same time daily. Start on 09/07/2022 Discharge Diet: Regular Patient Instructions: Miscarriage (DC), Blood Transfusion (DC) Additional Instructions: Discharge instructions were reviewed with the patient including signs and symptoms of infection and medications to use for pain.? ? No lifting or exercise restrictions. Nothing per vagina for 6 weeks: no tampons or intercourse. Off work or school for 6 weeks. ? Follow up with your surgeon in 2-3 weeks. Forms: Work/Release Restrictions Follow-up: [facility] [Provider Group] Ginette Magana MD [Staff Physician] - Discharge Orders: Discharge Order (Routine); Ordered 08/25/22 Ordered By: Whitney Mosquera
[2022-08-25 10:17] LABS: Clue Cells No Clue Cells Seen (None Seen); Trichomonas No Trichomonas Seen (None Seen); Yeast No Yeast Seen (None Seen)
--- NOTE | 2022-08-25 10:27 | PC.NURSE ---
RN reviewed discharge education and information with the patient. RN discussed signs and symptoms following a miscarriage and D&C that would warrant further medical attention (etc. excessive bleeding, passing clots, severe abd pain, and signs of infection), medications to take at home were also reviewed, and her followup appt. The RN has set up the patients followup appointment prior to discharge and this was written in her DC packet that was given to her. Prior to discharge the patients vital signs were stable as well as her medical condition. manager of creative services saw the pt prior to discharge as well as provider rounds were done this morning. The patient does not have any further questions for home going care. The pt discharged the unit ambulatory at 1025; RN escorted her to meet her ride.
--- NOTE | 2022-08-25 13:05 | PC.SOCIAL ---
Met with pt in pt's room. Discussed drug screening results. Pt stated that she takes medication for ADHD. Pt disclosed that she was going to treatment in [place] at [facility] within the next day. Discussed pt's mental health with her and she stated that she will deal with that later as she has a lot of other things she is dealing with. Informed Pt that this worker could provide her with mental health resources and pt declined. Pt disclosed that she has a [facility] Hearing Impaired Teacher, Francesca, that she is working with. Pt states that she has 3 children that she has an open child protection case with [facility] Automotive Design Layout Drafter. Pt reports that she gets resource information from her [facility] social worker. Pt inquired if [facility] has an on staff taxi that she could get a ride home. This worker informed that [facility] uses the local taxi and it would take time to set it up. Pt stated that it wasn't necessary because she has a ride coming, but she don't know when. Pt stated she just wants to leave the hospital now. This worker informed pt that if she had any additional needs that social work department is available to her.
--- NOTE | 2022-08-25 14:04 | PC.SOCIAL ---
Phone call to [facility] Child Protection Intake at [phone] and spoke to Susie Lanier. Provided verbal CPS report. Pt was admitted to the hospital for 2nd trimester miscarriage. Pt tested positive for Methamphetamine and Amphetamine. Concerns of lack of care prior to hospital visit. Followed up with written CPS report and discharge summary that was faxed to [facility] Child Protection Intake at [phone]. Received a phone call from [facility] Protection Ongoing Process Line Operator, Francesca Patino ([phone]). Francesca requested information on pt. Informed Francesca that this worker was completing CPS report and sending to [facility] CPS intake. Francesca requested a copy be emailed to her at [email or web address].
--- NOTE | 2022-08-26 16:13 | PC.SOCIAL ---
Received a phone call from Susie Lanier at [facility] Child Protection Intake. Susie informed this worker that the CPS report that was submitted on 08/25/22 was screened out. Susie informed that the report was sent to 's Child Protection Ongoing Packaging Supervisor to continue to offer services to the family.
[2022-08-26 20:41] LABS: CMV Antibody IgG <0.20 U/mL; CMV Antibody IgM <8.0 AU/mL (<=29.9); Toxoplasma gondii Ab, IgG <3.0 IU/mL; Toxoplasma gondii Ab, IgM <3.0 AU/mL (<=7.9)
[2022-08-27 00:27] LABS: B2Glycoprotein 1, IgG Antibody <10 SGU (<=20); B2Glycoprotein 1, IgM Antibody <10 SMU (<=20)
[2022-08-27 03:57] LABS: Cardiolipin Antibody IgA <10 APL (<=11); Cardiolipin Antibody IgG <10 GPL (<=14); Cardiolipin Antibody IgM 11 MPL (<=12)
[2022-08-29 21:09] LABS: Parvovirus B19 Antibody IgG 0.61 IV (<=0.90); Parvovirus B19 Antibody IgM 0.43 IV (<=0.90)
[2022-08-30 00:17] LABS: FACV Specimen Whole Blood; Factor V Leiden (F5) Mutation Negative
[2022-09-02 16:02] LABS: Prothrombin Time 12.8 sec (12.0-15.5); dRVVT Screen 35 sec (33-44)
== END 2022-08-25 10:25 | disposition home or self-care (01) ==
LOC: ED 03:44 → SS 04:20 → OB 08:31
PROVIDERS: Obstetrics & Gynecology; Emergency Provider Family Medicine; Visit Provider Obstetrics & Gynecology
PROC: (CPT 59812; principal; 2022-08-25 03:35)
DX: O03.1 Delayed or excessive hemorrhage following incomplete spontaneous abortion (principal); I95.9 Hypotension, unspecified; F98.8 Other specified behavioral and emotional disorders with onset usually occurring in childhood and adolescence; D62 Acute posthemorrhagic anemia; F32.A Depression, unspecified; F41.9 Anxiety disorder, unspecified; F15.10 Other stimulant abuse, uncomplicated; Z3A.14 14 weeks gestation of pregnancy
CPT/HCPCS: 59812; 36415; 36430; 76815; 76857; 76998; 80048; 80076; 80306; 81241; 82947; 84443; 85025; 85384; 85460; 85610; 85613; 85730; 86146; 86147; 86317; 86644; 86645; 86747; 86778; 86850; 86900; 86901; 86922; 87210; 87491; 87591; 88184; 88305; 940; 94761; 99140; 99285; 99291; A9270; J2250; J2405; J2590; J2704; J3010; J3490; J7030; J7050; P9016